=== PATIENT | male | born 1945 | race Caucasian/White ===

== ENCOUNTER 2018-07-22 08:28 | Emergency (ER) | payer MEDICARE, OTHER ==
[2018-07-22] MEDS ORDERED: NS 0.9% 1000 ML* 1,000 ML IV ONE (09:14)
--- NOTE | 2018-07-22 09:16 | UC ---
Nausea/Vomiting/Diarrhea HPI - HPI Summary HPI Summary: 73 male presents with intermittent diarrhea for the past 10 days. He states that he currently lives in [place] but had, to come up here for family reasons. He states that he give a stool sample to his primary but they have not followed up with him about the results. He states anytime he drinks something he has straight liquid diarrhea. He denies any blood in his stool. He did take a course of penicillin 3 weeks ago for couple days for a dental infection. He states his diarrhea is not foul-smelling. He denies any abdominal pain. He admits occasional nausea and vomiting. No known fever. No cough. No urinary symptoms. He states he feels very weak is he is not able to keep any food in him. has been using imodium for symptoms but then it causes constipation so then has to treat that. - History of Current Complaint Chief Complaint: UCGI Stated Complaint: DIARRHEA Time Seen by Provider: 07/22/18 09:04 Pain Intensity: 2 - Allergies/Home Medications Allergies/Adverse Reactions: Allergies Allergy/AdvReac Type Severity Reaction Status Date / Time No Known Allergies Allergy Verified 07/22/18 08:54 Home Medications: Home Medications Clopidogrel Bisulfate [Clopidogrel] 300 mg PO DAILY 07/22/18 [History Confirmed 07/22/18] Cyanocobalamin (Vitamin B-12) [Vitamin B-12] 1,000 mcg PO DAILY 07/22/18 [ History Confirmed 07/22/18] Lisinopril 10 mg PO DAILY 07/22/18 [History Confirmed 07/22/18] Omeprazole 20 mg PO DAILY 07/22/18 [History Confirmed 07/22/18] Rosuvastatin Calcium [Crestor] 40 mg PO DAILY 07/22/18 [History Confirmed ] Ubidecarenone/Vit E/Vit E Mix [Co-Enzyme Q10 100 mg Softgel] 1 tab PO DAILY 11/04 [History Confirmed 07/22/18] PMH/Surg Hx/FS Hx/Imm Hx Endocrine History: Other Other Endocrine History: no DM Cardiovascular History: Hypertension - Surgical History Surgical History: None - Family History Known Family History: Positive: Other - no UC or crohns - Social History Alcohol Use: Daily Substance Use Type: None Smoking Status (MU): Light Every Day Tobacco Smoker Amount Used/How Often: 10 cig day Have You Smoked in the Last Year: Yes Household Exposure Type: Cigarettes Review of Systems All Other Systems Reviewed And Are Negative: Yes Constitutional: Negative: Fever Gastrointestinal: Positive: Vomiting, Diarrhea, Nausea. Negative: Abdominal Pain Is Patient Immunocompromised?: Yes Physical Exam Triage Information Reviewed: Yes Appearance: Well-Appearing Vital Signs: Initial Vital Signs Temp 97.3 F 07/22/18 08:40 Pulse 79 07/22/18 08:40 Resp 18 07/22/18 08:40 BP 155/95 07/22/18 08:40 Pulse Ox 98 07/22/18 08:40 Vital Signs Reviewed: Yes Eye Exam: Normal ENT: Positive: Normal ENT inspection, Pharynx normal, TMs normal Respiratory: Positive: Lungs clear, Normal breath sounds Cardiovascular: Positive: RRR Abdomen Description: Positive: Nontender, Soft Bowel Sounds: Positive: Present Musculoskeletal Exam: Normal Neurological Exam: Normal Psychological Exam: Normal Skin Exam: Normal Re-Evaluation - Re-Evaluation First Eval Re-Evaluation Time: 10:16 Change: Improved Comment: feeling better after fluids Naus/Vom/Diarrhea Course/Dx - Course Course Of Treatment: 73 male presents with intermittent diarrhea for the past 10 days. He states that he currently lives in [place] but had, to come up here for family reasons. He states that he give a stool sample to his primary but they have not followed up with him about the results. He states anytime he drinks something he has straight liquid diarrhea. He denies any blood in his stool. He did take a course of penicillin 3 weeks ago for couple days for a dental infection. He states his diarrhea is not foul-smelling. He denies any abdominal pain. He admits occasional nausea and vomiting. No known fever. No cough. No urinary symptoms. He states he feels very weak is he is not able to keep any food in him. on exam nontender abd. discussed that recommend go to ED as has risk for c diff and length of symptoms. patient states can not go till later so will give nausea meds and fluids here. feeling better and fluids but urged needs to be seen in ED especially if can not get a hold of primary for stool culture results. patient understand and agrees with plan. patient has hx of htn and will follow up with primary about such. - Differential Dx/Diagnosis Differential Diagnoses - Male: Diverticulitis, Gastroenteritis (Viral), Gastroenteritis (Bacterial), Dehydration Provider Diagnosis: Diarrhea Condition At Discharge: Good Discharge - Sign-Out/Discharge Documenting (check all that apply): Patient Departure All imaging exams completed and their final reports reviewed: No Studies - Discharge Plan Condition: Good Disposition: HOME Prescriptions: Ondansetron ODT TAB* [Zofran 4 MG Odt TAB*] 4 mg PO Q6H PRN #12 tab.odt PRN Reason: Nausea Patient Education Materials: Acute Diarrhea (ED) Referrals: No Primary Care Phys,NOPCP [Primary Care Provider] - Additional Instructions: It is recommended that you go to the ED for further evaluation of your diarrhea drink fluids as tolerated Take zofran every 6 hours as needed for nausea - Billing Disposition and Condition Condition: GOOD Disposition: Home - Attestation Statements Provider Attestation: Per institutional requirements, I have reviewed the chart, however, I was not consulted specifically or made aware of this patient by the midlevel provider. I did not personally evaluate, interact with , or disposition this patient.
== END 2018-07-22 10:40 | disposition home or self-care (01) ==
LOC: UCEAST 08:28
DX: R19.7 Diarrhea, unspecified (principal); F17.210 Nicotine dependence, cigarettes, uncomplicated
CPT/HCPCS: 96360; 99202; G0463